=== PATIENT | female | born 2000 | race Two or more races ===

== ENCOUNTER 2022-08-06 02:11 | Inpatient (IN) | payer OTHER ==
[~2022-08-06] VITALS: Ht 149.9 cm; Wt 2.7 kg
== END 2022-08-10 13:10 | disposition home or self-care (01) | DRG 788 ==
LOC: OBS/DEL 02:11 → OB/GYN 08-07 09:53 → LDR 08-07 09:53 → OBS/DEL 08-07 09:53 → O/R 08-07 21:32 → OB/GYN 08-08 00:32
PROVIDERS: ADMIT Obstetrics & Gynecology; ATTEND Obstetrics & Gynecology
PROC: 4A1HXCZ Monitoring of Products of Conception, Cardiac Rate, External Approach (ICD-10-PCS; 2022-08-07)
PROC: 10D00Z1 Extraction of Products of Conception, Low, Open Approach (ICD-10-PCS; principal; 2022-08-07 22:00)
DX: O36.8330 Maternal care for abnormalities of the fetal heart rate or rhythm, third trimester, not applicable or unspecified (principal); Z3A.36 36 weeks gestation of pregnancy; Z37.0 Single live birth; Z20.822 Contact with and (suspected) exposure to COVID-19

== ENCOUNTER 2025-06-15 09:09 | Outpatient (CLI) | payer OTHER | END 2025-06-15 10:52 | disposition home or self-care (01) | LOC: PRENATAL 09:09 | PROVIDERS: ATTEND Obstetrics & Gynecology Maternal & Fetal Medicine | DX: O44.02 Complete placenta previa NOS or without hemorrhage, second trimester (principal); O36.1920 Maternal care for other isoimmunization, second trimester, not applicable or unspecified; O34.219 Maternal care for unspecified type scar from previous cesarean delivery; Z3A.21 21 weeks gestation of pregnancy ==